=== PATIENT | female | born 1995 | race Caucasian/White ===

== ENCOUNTER 2017-01-03 13:20 | Outpatient (CLI) | payer OTHER ==
[~2017-01-03] VITALS: Ht 167.6 cm; Wt 97.7 kg
[2017-01-03 13:59] VITALS: BP 123/75
[2017-01-03 15:07] LABS: DAU SCREEN DISCLAIMER
== END 2017-01-03 17:10 | disposition home or self-care (01) ==
LOC: LDOP 13:20
PROVIDERS: ATTEND Obstetrics & Gynecology
DX: O46.92 Antepartum hemorrhage, unspecified, second trimester (principal); Z3A.23 23 weeks gestation of pregnancy
CPT/HCPCS: 59025; 76805; 80307; 81001; 87086; 99201; G0463; G0479